=== PATIENT | female | born 1975 | race African-American/Black ===

== ENCOUNTER 2016-10-11 02:31 | Emergency (ER) | payer BC ==
[~2016-10-11] VITALS: Ht 167.6 cm; Wt 97.0 kg
[2016-10-11 02:54] VITALS: BP 122/64
[2016-10-11] MEDS ORDERED: SODIUM CHLORIDE 0.9% 1,000 ML IV ONE (03:33)
== END 2016-10-11 03:58 | disposition left against medical advice (07) ==
LOC: ER 02:35
DX: R55 Syncope and collapse (principal); I10 Essential (primary) hypertension; Z85.72 Personal history of non-Hodgkin lymphomas; Z85.3 Personal history of malignant neoplasm of breast; N61.1 Abscess of the breast and nipple
CPT/HCPCS: 99283; J7030; Z7610